=== PATIENT | female | born 1960 | race Caucasian/White ===

== ENCOUNTER → 2016-08-16 | Outpatient (CLI) | payer BC ==
--- NOTE | 2016-08-16 10:00 | REPMRS ---
Patient History The patient states she had a clinical breast exam in Patient is postmenopausal. Family history of colorectal cancer in father at age 50 or over and breast cancer in 2 paternal aunts at age 50 or over. Digital Woman Screen Mammo: August 16, 2016 - Exam #: [id number] Bilateral CC and MLO view(s) were taken. Technologist: Tracey Lehman, Technologist Prior study comparison: August 30, 2015, digital woman screen mammo performed at [facility]. August 07, 2014, digital woman screen mammo performed at [facility]. September 03, 2012, digital woman screen mammo performed at [facility]. FINDINGS: There are scattered fibroglandular densities. There has been no change in the appearance of the mammogram from the prior studies. There is a mild amount of scattered fibroglandular density which is fairly symmetric. There is no interval development of dominant mass, architectural distortion, or clustered microcalcification suggestive of malignancy. ASSESSMENT: BI-RADS/ACR category 1 mammogram. Negative. Recommendation Routine screening mammogram in 1 year (for women over age 40). This mammogram was interpreted with the aid of an FDA-approved computer-aided dectection system. Electronically Signed By: Luis A Hernandez MD 08/16/16 1000
== END ==
LOC: M WHC 08:02
PROVIDERS: ATTEND Nurse Practitioner Family
DX: Z12.31 Encounter for screening mammogram for malignant neoplasm of breast (principal)

== ENCOUNTER → 2017-07-23 | Outpatient (CLI) | payer BC | LOC: M WUC 12:07 | DX: M25.572 Pain in left ankle and joints of left foot (principal) | CPT/HCPCS: 73610 ==

== ENCOUNTER → 2017-08-29 | Outpatient (REF) | payer BC ==
[2017-08-31 14:17] LABS: HPV HYBRID CAPTURE II Negative (Negative)
== END ==
LOC: M SFHCWAGY 11:39
DX: Z12.4 Encounter for screening for malignant neoplasm of cervix (principal)
CPT/HCPCS: G0123

== ENCOUNTER → 2017-08-29 | Outpatient (CLI) | payer BC | LOC: M WHC 11:05 | DX: Z12.31 Encounter for screening mammogram for malignant neoplasm of breast (principal) | CPT/HCPCS: 77067 ==

== ENCOUNTER → 2018-09-02 | Outpatient (CLI) | payer BC ==
[~2018-09-02] MED LIST: VALA500T5 PO
--- NOTE | 2018-09-02 10:15 | REPMRS ---
Patient History The patient states she had a clinical breast exam in 09/03 Patient is postmenopausal. Family history of breast cancer at age 50 or over in paternal aunt, breast cancer at age 50 or over in paternal aunt, colorectal cancer at age 50 or over in father. Taking estrogen for 2 months. Digital Woman Screen Mammo: September 02, 2018 - Exam #: [id number] Bilateral CC and MLO view(s) were taken. Technologist: Priya Newberry, Technologist Prior study comparison: August 29, 2017, digital woman screen mammo performed at [facility]. August 16, 2016, digital woman screen mammo performed at [facility]. FINDINGS: There are scattered fibroglandular densities. There has been no change in the appearance of the mammogram from the prior studies. There is a mild amount of residual fibroglandular tissue which is fairly symmetric. There is no interval development of dominant mass, architectural distortion, or clustered microcalcification suggestive of malignancy. Scattered lymph nodes are seen in the axilla. There are scattered, small, benign calcifications of doubtful clinical significance. 3-D tomosynthesis shows no additional findings. No significant changes when compared with prior studies. Assessment: BI-RADS/ACR category 2 mammogram. Benign Findings. Recommendation Routine screening mammogram in 1 year (for women over age 40). This mammogram was interpreted with the aid of an FDA-approved computer-aided dectection system. A. Negative x-ray reports should not delay biopsy if a dominant or clinically suspicious mass is present. B. Four to eight percent of cancers are not identified by mammography. C. Adenosis and dense breast may obscure an underlying neoplasm. Electronically Signed By: Duncan Romo MD 09/02/18 1700
== END ==
LOC: M WHC 09:28
PROVIDERS: ATTEND Nurse Practitioner Family
DX: Z12.31 Encounter for screening mammogram for malignant neoplasm of breast (principal); R92.8 Other abnormal and inconclusive findings on diagnostic imaging of breast; Z79.890 Hormone replacement therapy; Z80.3 Family history of malignant neoplasm of breast

== ENCOUNTER → 2018-12-23 | Outpatient (REF) | payer BC ==
[2018-12-25 13:45] LABS: HEPATITIS A ANTIBODY IGM NEGATIVE (NEGATIVE); HEPATITIS B CORE ANTIBODY IGM NEGATIVE (NEGATIVE); HEPATITIS B SURFACE ANTIGEN NEGATIVE (NEGATIVE); HEPATITIS C VIRUS ABY INDEX < 0.0 INDEX (<0.8)
== END ==
LOC: M LAB REF 11:39
PROVIDERS: ATTEND Nurse Practitioner Adult Health
DX: R74.8 Abnormal levels of other serum enzymes (principal)

== ENCOUNTER → 2019-09-12 | Outpatient (REF) | payer BC | LOC: M SFHCWAGY 14:53 | PROVIDERS: ATTEND Nurse Practitioner Family | DX: Z12.4 Encounter for screening for malignant neoplasm of cervix (principal) | CPT/HCPCS: 87624; G0123 ==

== ENCOUNTER → 2019-09-12 | Outpatient (CLI) | payer BC ==
--- NOTE | 2019-09-12 12:45 | REP ---
BILATERAL SCREENING DIGITAL MAMMOGRAM WITH 3D TOMOSYNTHESIS: There are no palpable abnormalities or other breast complaints. The patient does not indicate if she had a clinical breast examination in the past year. The Tyrer-[facility]uz[facility] Lifetime Breast Cancer Risk Score is: 10.4% . Comparison is 08/07/2014. The There are scattered areas of fibroglandular density. There is no dominant mass, micro calcific cluster or architectural distortion that would indicate malignancy. There are no additional findings on 3D tomosynthesiss. There is no change from the prior study. Impression: BIRADS/ACR category 1 mammogram. Negative. Recommendation: Routine annual screening mammography. This mammogram was interpreted with the aid of a FDA approved computer-aided detection system. A. Negative mammogram reports should not delay biopsy if a dominant or clinically suspicious mass is present. B. Not all breast cancers are identified by mammography or tomosynthesis. C. Adenosis and dense breasts may obscure an underlying neoplasm. Patient letter M1. Electronically Signed by Ayan Fitzpatrick MD 09/12/2019 12:36 P
== END ==
LOC: M WHC 11:07
PROVIDERS: ATTEND Nurse Practitioner Family
DX: Z12.31 Encounter for screening mammogram for malignant neoplasm of breast (principal)

== ENCOUNTER → 2019-09-17 | Outpatient (CLI) | payer BC ==
--- NOTE | 2019-09-17 11:32 | REP ---
CERVICAL SPINE SERIES: Full cervical spine series performed with eight total views obtained. There is very mild anterior listhesis of C4 on C5 due to posterior facet arthropathy, slightly increases with flexion. No compression fracture is seen. There is diffuse narrowing, sclerosis, and spurring at the posterior facet joints with prominent spurs on the left at the C4-5 facets. Mild vertebral body spurring is noted diffusely. There is mild disc space narrowing and subchondral sclerosis at C5-6 and C6-7. There is no radiographic evidence of significant neural foraminal narrowing bilaterally. IMPRESSION: Degenerative changes as above. No acute fracture is visualized, but if there is continued clinical concern for a fracture then a CT would be recommended. Electronically Signed by Ayan Oseugera MD 09/17/2019 03:57 P
--- NOTE | 2019-09-17 11:33 | REP ---
THORACIC SPINE, AP AND LATERAL: Three AP and lateral views of the thoracic spine are performed. No compression fracture is seen. There is normal alignment and thoracic kyphosis. Very small spurs are seen diffusely with mild disc space narrowing and subchondral sclerosis at virtually all levels. Posterior elements are intact. There is mild curvature toward the right. IMPRESSION: Mild degenerative changes and curvature toward the right. No evidence of fracture. Electronically Signed by Ayan Oseguera MD 09/17/2019 03:57 P
== END ==
LOC: M WUC 10:10
PROVIDERS: ATTEND Physician Assistant
DX: S13.4XXA Sprain of ligaments of cervical spine, initial encounter (principal); S23.3XXA Sprain of ligaments of thoracic spine, initial encounter; X58.XXXA Exposure to other specified factors, initial encounter; Y92.89 Other specified places as the place of occurrence of the external cause

== ENCOUNTER 2019-10-13 11:07 | Outpatient (RCR) | payer BC | END 2019-10-14 | LOC: M PT 11:07 | PROVIDERS: ATTEND Physician Assistant Surgical | DX: M54.2 Cervicalgia (principal) ==

== ENCOUNTER 2019-11-03 11:15 | Outpatient (RCR) | payer BC | END 2019-11-13 | LOC: M PT 11:15 | PROVIDERS: ATTEND Physician Assistant Surgical | DX: Z51.89 Encounter for other specified aftercare (principal); M54.2 Cervicalgia ==

== ENCOUNTER → 2020-09-22 | Outpatient (CLI) | payer BC ==
--- NOTE | 2020-09-22 11:49 | REP ---
INDICATION: N63.12 YRN DIAG MAMMO/RIGHT BREAST LUMP. Palpable lump 12 o'clock position right breast on clinician breast exam. COMPARISON: Mammography is reviewed from September 12, 2019, August 29, 2017, and September 02, 2018. TECHNIQUE: Bilateral CC and MLO) view(s) were taken. Routine views were augmented by magnified focal spot-compression CC mL and MLO views of the right breast in the area the palpable lump. 3D tomography was carried out. Targeted right breast sonography is performed. FINDINGS: There are scattered fibroglandular elements bilaterally. There is an area of architectural distortion on the MLO view at 12 o'clock in the right breast immediately adjacent to the skin marker denoting the site of the palpable lump. On the craniocaudad projection images there is a 1 cm nodular density associated with this architectural distortion showing some spiculation. The right breast is otherwise unremarkable. Normal appearing bilateral axillary lymph nodes are seen. The left breast shows no suspicious abnormality. The Volpara volumetric breast density pattern is B. Targeted right breast sonography: At the site of the palpable lump at 12 o'clock in the right breast, 4 cm from the nipple, sonography demonstrates a 0.7 x 0.6 x 0.6 cm irregularly marginated hypoechoic mass with spiculated appearance. It is taller than wide on some images and is considered suspicious.. IMPRESSION: BI-RADS category 4 right breast mammogram and sonographic findings. Suspicious abnormality. Biopsy should be considered. The left breast is unremarkable. This patient's [facility] lifetime breast cancer risk assessment score is 10.1%. This mammogram was interpreted with the aid of an FDA-approved computer-aided detection system. The patient states she had a clinical breast exam in September of 2020. The patient letter being requested is M4. RECOMMENDATION: Ultrasound-guided needle biopsy of the right breast with marker clip placement and post clip placement mammography of the right breast is recommended.. <Electronically signed by Luis A Hernandez > 09/22/20 4242
== END ==
LOC: M WHC 09:38
PROVIDERS: ATTEND Nurse Practitioner Family
DX: N63.12 Unspecified lump in the right breast, upper inner quadrant (principal)
CPT/HCPCS: 76642; 77066; G0279

== ENCOUNTER → 2020-10-06 | Outpatient (CLI) | payer BC ==
[~2020-10-06] MED LIST changes: +ACET325C5 PO; +ESTR62CR PV; +VITMTA PO
[2020-10-06 09:03] VITALS: BP 120/74
--- NOTE | 2020-10-06 09:45 | REP ---
INDICATION: N63.0 RT BREAST PALPABLE MASS,POST US GUDIED BIOPSY. COMPARISON: Comparison mammography September 22, 2020 and September 12, 2019. TECHNIQUE: Craniocaudal and mediolateral views of the right breast are obtained post ultrasound-guided needle biopsy with marker clip placement. This mammogram was interpreted with the aid of an FDA-approved computer-aided detection system. FINDINGS: Scattered fibroglandular elements are seen. The needle biopsy marker clip is seen adjacent to the spiculated density in the right breast superiorly just medial to the plane of the nipple. . : IMPRESSION: Marker clip in good position. RECOMMENDATION: None. <Electronically signed by Luis A Hernandez > 10/06/20 0905
--- NOTE | 2020-10-06 09:50 | REP ---
INDICATION: N63.0 RT BREAST PALPABLE MASS,US GUIDED BIOPSY. COMPARISON: Comparison sonography September 22, 2020.. TECHNIQUE: Sonographic guidance. FINDINGS: Ultrasound guidance is provided to Dr. Miranda performed ultrasound-guided needle biopsy procedure right breast with marker clip placement. IMPRESSION: Procedural imaging. <Electronically signed by Luis A Hernandez > 10/06/20 0963
--- NOTE | 2020-10-09 11:53 | ROOPDOC ---
[facility] Report Of Operation Report of Operation DATE OF PROCEDURE: 10/06/20 DIAGNOSIS: right breast suspicious lesion PROCEDURE: Ultrasound guided biopsy of right breast suspicious lesion with clip placement SURGEON: Harriet Lord BLOOD LOSS: minimal COMPLICATIONS: none Lidocaine 1% LOT [id number] Expiration 10/2023 Sodium Bicarbonate 8.4% LOT [id number] Expiration 08/2021 Hydromark clip LOT [id number] Expiration 05/2023 SHAPE : 3 Bx device: BARD [id number] x10 cm LOT [id number] Expiration 07/2021 Informed consent was obtained. The most common risk and possible complications including bleeding, hematoma, bruising, infection, injury to surrounding structures were explained to the patient and the patient expressed understanding. Patient was placed on the bed in the supine position. Appropriate time out was done stating patients name, date of , and the procedure to be performed. The right breast was prepped and draped in the usual fashion. The ultrasound was used to confirm the location of the lesion in the right breast at 12:00 4centimeters from the nipple. Plain Lidocaine 1% and 8.4% sodium bicarbonate 10:1 mix was used to anesthetize the skin, the biopsy site and tissues along the anticipated biopsy tract. Small skin incision was made with blade number 11. BARD Marquee 14G cannula with introducer ([id number]) was inserted through the incision and advanced under the ultrasound guidance to position immediately adjacent to the lesion. Next, the introducer was removed and BARD Marquee 14G biopsy device was places in the cannula. Pre-biopsy imaging, and post-biopsy imaging were captured. Five good core biopsies were taken at various levels of the lesion. Specimen was placed in formaldehyde, labeled with appropriate biopsy site and patients name, and sent to pathology for evaluation. Next, the biopsy device was withdrawn and a clip introducer was inserted into the biopsy site via the cannula. The SHAPE 3 Hydromark clip was deployed under sonographic guidance. Post-clip placement image was captured. Manual pressure over the biopsy cavity and tract was held after the clip introducer was withdrawn. No bleeding was noted upon removal of the pressure. Post-biopsy mammogram of the right breast was obtained and showed clip in expected position. Postprocedural dressing was placed. Patient tolerated procedure well. Discharge instructions were discussed with the patient and the patient expressed understanding. HARRIET LORD DO Oct 09, 2020 11:53
== END ==
LOC: M WHCPRO 06:13
PROVIDERS: ATTEND Surgery
DX: D05.12 Intraductal carcinoma in situ of left breast (principal)

== ENCOUNTER → 2020-10-14 | Outpatient (CLI) | payer BC ==
[2020-10-14 09:37] LABS: BLOOD UREA NITROGEN 11 MG/DL (7-18); CALCIUM LEVEL 8.9 MG/DL (8.5-10.1); CARBON DIOXIDE LEVEL 29 MEQ/L (21-32); CHLORIDE LEVEL 104 MEQ/L (98-107); CREATININE FOR GFR 0.61 MG/DL (0.55-1.30); GLOMERULAR FILTRATION RATE > 60.0 (>51); GLUCOSE, FASTING 82 MG/DL (70-100); POTASSIUM SERUM 4.1 MEQ/L (3.5-5.1); SODIUM LEVEL 138 MEQ/L (136-145)
== END ==
LOC: M LAB 08:15
PROVIDERS: ATTEND Surgery
DX: C50.911 Malignant neoplasm of unspecified site of right female breast (principal)

== ENCOUNTER → 2020-10-22 | Outpatient (CLI) | payer BC ==
[~2020-10-22] MED LIST changes: +PROHANCE 279.3MG/ML 15ML VIAL As Ordered ONE
--- NOTE | 2020-10-22 18:52 | REP ---
INDICATION: BREAST CA RIGHT. COMPARISON: Mammogram and ultrasound 09/22/2020. TECHNIQUE: Three Kelsie MRI imaging was performed with a dedicated breast coil. Axial, coronal, and sagittal T1 and T2 weighted scans were obtained with and without fat saturation in the usual fashion. The study includes dynamically acquired post gadolinium-enhanced imaging with image subtraction. Maximum intensity projection and multi planar reformation imaging is included as well. This study is interpreted with the aid of [employer] an FDA approved computer aided detection (CAD) software program, on a dedicated breast MRI workstation. The gadolinium enhancement dose is 12 mL of intravenous ProHance. FINDINGS: There is mild bilateral parenchymal tissue. There is no axillary adenopathy. No significant cystic change is seen in either breast. There is very mild background parenchymal enhancement bilaterally. At the 12 o'clock position, at the site of the recent biopsy positive for cancer in the upper right breast, a biopsy clip is noted. There is a spiculated mass demonstrating plateau and washout enhancement at that location, measuring approximately 8 x 11 x 7 mm. This is located approximately 4 cm from the nipple. There is no other suspicious enhancing mass or morphologic abnormality bilaterally. IMPRESSION: BI-RADS category 6 known right breast cancer. At the 12 o'clock position of the right breast, at the site of the recent biopsy positive for cancer, is a spiculated mass which measures 8 x 11 x 7 mm. This demonstrates suspicious plateau and washout enhancement. There is no other evidence of suspicious enhancing mass or morphologic abnormality. There is no evidence of pathologically enlarged axillary lymph nodes bilaterally. <Electronically signed by Ayan Oseguera > 10/22/20 0533
== END ==
LOC: M RAD 15:29
PROVIDERS: ATTEND Surgery
DX: C50.412 Malignant neoplasm of upper-outer quadrant of left female breast (principal)
CPT/HCPCS: A9576; C8908

== ENCOUNTER → 2020-10-28 | Outpatient (CLI) | payer BC ==
[~2020-10-28] MED LIST changes: -PROHANCE 279.3MG/ML 15ML VIAL As Ordered ONE
== END ==
LOC: M LABSMTC 12:47
PROVIDERS: ATTEND Anesthesiology
DX: Z20.828 Contact with and (suspected) exposure to other viral communicable diseases (principal); Z11.59 Encounter for screening for other viral diseases

== ENCOUNTER → 2020-10-28 | Outpatient (CLI) | payer BC ==
--- NOTE | 2020-10-29 06:46 | REP ---
INDICATION: ENCOUNTER FOR OTHER PREPROCEDURAL EXAMINATION COMPARISON: None. TECHNIQUE: PA and lateral. FINDINGS: The mediastinum and cardiac silhouette are normal. The lung kamara are clear and without acute consolidation, effusion, or pneumothorax. The skeletal structures are intact and normal. IMPRESSION: No acute cardiopulmonary process. <Electronically signed by Dalton Trujillo > 10/29/20 0612
== END ==
LOC: M RAD 15:14
PROVIDERS: ATTEND Surgery
DX: Z01.818 Encounter for other preprocedural examination (principal)

== ENCOUNTER 2020-11-02 06:42 | Day surgery (SDC) | payer BC ==
[~2020-11-02] VITALS: Ht 157.5 cm; Wt 62.1 kg
[~2020-11-02 06:42] MED LIST changes: +LIDOCAINE 1% MDV 20ML VIAL SQ PRN
[2020-11-02] MEDS ORDERED: HEPARIN SOD (PORCINE) 5000UNITS/ML 1ML VIAL/SYRINGE SQ ONE (07:00)
[2020-11-02] MEDS ORDERED: CLINDAMYCIN 900 MG in IV 1 EA IV ONE (07:00)
[2020-11-02] MEDS ORDERED: LR 1,000 ML IV ONE (07:00)
[2020-11-02] MEDS ORDERED: propofoL 200 MG/20 ML VIAL As Ordered ONE (08:19)
[2020-11-02] MEDS ORDERED: fentaNYL 100 MCG/2 ML INJECTION (J3010) As Ordered ONE (08:19)
[2020-11-02] MEDS ORDERED: MIDAZOLAM INJ 2MG/2ML VIAL (J2250 PER 1MG) As Ordered ONE (08:19)
[2020-11-02] MEDS ORDERED: LIDOCAINE 2% 100MG/5ML SDV (FOR ANES.) As Ordered ONE (08:19)
[2020-11-02] MEDS ORDERED: ONDANSETRON 4MG/2ML VIAL As Ordered ONE (08:19)
[2020-11-02] MEDS ORDERED: ACETAMINOPHEN 1000MG 100ML IV BTL (OFIRMEV) (J0131 PER 10MG) As Ordered ONE (08:20)
[2020-11-02] MEDS ORDERED: dexameTHASONE 4 MG/ML 1ML VIAL (J1100 PER 1MG) As Ordered ONE (08:20)
[2020-11-02] MEDS ORDERED: BUPIVACAINE HCL 0.25% 30ML VIAL As Ordered ONE (09:23)
[2020-11-02] MEDS ORDERED: LIDOCAINE 1% SDV 30ML VIAL As Ordered ONE (09:23)
[2020-11-02] MEDS ORDERED: METHYLENE BLUE 0.5% (5MG/ML) 10 ML AMP (PROVAYBLUE) As Ordered ONE (09:23)
[2020-11-02] MEDS ORDERED: PHENYLephrine 500MCG 5ML (100MCG/ML) SYRINGE As Ordered ONE (11:17)
--- NOTE | 2020-11-02 11:54 | REP ---
INDICATION: RIGHT BREAST CANCER. COMPARISON: Comparison ultrasound imaging October 06, 2020.. TECHNIQUE: Ultrasound guidance. FINDINGS: Sonographic guidance is provided to Dr. Miranda who performed a ultrasound-guided wire localization procedure. IMPRESSION: Procedural imaging. Ultrasound guidance. <Electronically signed by Luis A Hernandez > 11/02/20 1152
[2020-11-02] MEDS ORDERED: ULTR50TA8 PO (12:59)
[2020-11-02] MEDS ORDERED: fentaNYL 100 MCG/2 ML INJECTION (J3010) IV PRN (13:15)
[2020-11-02] MEDS ORDERED: LR 1,000 ML IV SCH (13:15)
[2020-11-02] MEDS ORDERED: oxyCODONE 5MG TAB PO PRN (13:15)
[2020-11-02] MEDS ORDERED: ONDANSETRON 4MG/2ML VIAL IV PRN (13:15)
[2020-11-02 14:25] VITALS: BP 117/73
--- NOTE | 2020-11-02 15:54 | REP ---
INDICATION: RIGHT BREAST CANCER. COMPARISON: Comparison mammography October 06, 2020.. TECHNIQUE: Four views including photograph spirits FINDINGS: Two orthogonal specimen radiographs demonstrate the needle biopsy marker clip, the Kopan's localizer wire, and the spiculated lesion density centrally located within the breast specimen. IMPRESSION: Specimen radiography shows the marker clip, the target spiculated lesion, and the Kopan's localizer wire. <Electronically signed by Luis A Hernandez > 11/02/20 8103
--- NOTE | 2020-11-02 16:41 | REP ---
INDICATION: NEEDLE BIOPSY. COMPARISON: None. TECHNIQUE: The procedure was performed under the direct supervision of Dr. Hernandez. The images were reviewed with Dr. Hernandez. The risks and benefits of the procedure were explained to the patient and informed consent was obtained. Using topical anesthetic and sterile technique 0.96 mCi of technetium 99 filtered sulfur colloid was injected subdermally in 8 fractionated periareolar injections. FINDINGS: There is nadya uptake in the axillary region on the right. IMPRESSION: Right breast lymphoscintigraphy. There is nadya uptake in the axillary region on the right. <Electronically signed by Obed Sylvester > 11/02/20 1622 <Electronically signed by Luis A Hernandez > 11/02/20 5249
--- NOTE | 2020-11-09 11:49 | ROOPDOC ---
[facility] Report Of Operation Report of Operation DATE OF PROCEDURE: 11/02/20 PREPROCEDURE DIAGNOSES: Right breast cancer POSTPROCEDURE DIAGNOSES: Right breast cancer PROCEDURE: Right breast lumpectomy with intraoperative wire placement and right sentinel lymph node biopsy SURGEON: Harriet Lord ESTIMATED BLOOD LOSS: minimal COMPLICATIONS: none REMARKS: clip and wire were identified in the specimen, 2 sentinel lymph nodes identified, 5 margins were taken DESCRIPTION OF PROCEDURE: INDICATIONS: Ms. Yamileth Meza is a 60-year-old woman who was found to have a suspicious right breast palpable mass. Mammographic and sonographic correlate were found. US guided biopsy of the right breast lesion came back as IDC, ER +, NE+, HER-2 negative. Surgical options were discussed with patient. She opted for breast conservative surgery with sentinel lymph node biopsy on the right. She was medically cleared for surgery by her primary care doctor. Risks and possible complications of surgical procedure including bleeding, infection and injury to surrounding structures were explained to the patient and she wished to proceed. Consent was signed. My initials were placed on the operative site. Subcutaneous injection of 5000 units of heparin was done. The injection of radioactive tracer was done in radiology department preoperatively. Lymphoscintigraphy imaging was reviewed in preop. DETAILS: Patient was taken to the operating room and placed on the operating room table. A sign in was called stating patients name, date of and the procedure to be done. Preoperative antibiotics were infused. Smooth induction of general anesthesia was done. Patients hands were extended on arm rests. Care was taken not to over extend the arms. Pillow was placed under the knees and a foam was placed under the heels. Sequential compression devices were placed and assured to function correctly. Procedure was started with right breast intraop wire localization. Appropriate time out was done and patients name, date of , and the procedure to be done were confirmed. Right breast was cleaned by me. Intraoperative ultrasound was used to confirm location of the Hydromark clip. Location of the clip was marked on the skin as well. 21 G Kopans Breast Lesion Localization Needle was used to place 25 cm wire through the lesion. The end of the wire was passed a centimeter deep. The images were captured confirming adequate placement of the localizing wire. Wool Puller assisted with the wire placement. Next, patients right breast and axilla were prepped and draped in the usual fashion. Care was taken not to displace the wire. Appropriate time out was done again prior second part of the procedure. Patients name, date of , and the procedure to be done were confirmed. Procedure was started with sentinel lymph node biopsy. Neoprobe was used to locate area of maximum intensity of the signal. Local anesthetic using 1% lidocaine and 0.25 % Marcaine 50/50 mix was injected. An incision was made with scalpel number 15 at the inferior aspect of axillary hair line in the right axilla where the maximum signal was identified. The sharp and blunt dissection was continued through the subcutaneous adipose tissue. Clavipectoral fascia was opened. Neoprobe was used to guide the dissection. First sentinel lymph node was identified in deep axilla and excised. The ex-vivo 10 second count was 90022. Second sentinel lymph node was identified and excised as well. The ex- vivo 10 second count was 65805. The specimens were labeled with patients name and sent to pathology. No additional lymph nodes with high radioactive signal were identified. The 10 second count of the background was 23. Adequate hemostasis was assured. Additional local anesthetic was injected into surrou nding tissues. Wound was irrigated. Clavipectoral fascia was closed with 3-0 Vicryl interrupted suture. Dermal layer was closed at the end of the case with 3-0 Monocryl and skin was closed with 4-0 Monocryl. Surgical glue was applied to the incision at the end of the procedure. Next, our attention was turned toward the right breast. Local anesthetic using 1% lidocaine and 0.25 % Marcaine 50/50 mix was injected at the site of planned periareolar incision. The incision was made with the scalpel. Subcutaneous skin flaps were raised and the guide wire was carefully pulled into the wound. Dissection was carries along the wire until the previously marked on the skin area of target lesion location was encountered. At this point, wider excision of the tissue surrounding the wire was done. The Hydromark clip was identified in the tissue with intraoperative hockey stick ultrasound probe. The end of the wire was identified with palpation. The lumpectomy specimen was carefully removed from the breast keeping its proper orientation and moved to the back table where margins were marked with the surgical inking kit following the standard colors recommendations. Specimen was then placed on the grid and placed in [facility] Specimen Imaging System. The image revealed the wire and the Hydromark in the specimen. The specimen was labeled with patients name and right lumpectomy and sent to pathology. Next, five additional margins were taken: deep, inferior, superior, medial, and lateral. Additional anterior margin was not removed because it was at the subcutaneous tissue. All new margins, defined as margin farthest away from lumpectomy cavity, were marked with black ink. Each margin was sent as a separate specimen with appropriate labeling. Wound was thoroughly irrigated. Ad equate hemostasis was assured. Additional local anesthetic was injected into surrounding tissues. Clips were placed to kiko the cavity. space was approximated with 2-0 Vicryl. The dermis was closed with 3-0 Vicryl and skin was closed with 4-0 Monocryl. Surgical glue was placed over the incision. Patient emerged from the anesthesia without any problems. Fluffs were placed ove r the operative site and patients chest was wrapped snuggly in the KING wrap. Sponge and instrument counts were done and were correct. Patient tolerated procedure well and was taken to recovery unit in stable condition. HARRIET LORD DO Nov 09, 2020 11:49
== END 2020-11-02 14:30 | disposition home or self-care (01) ==
LOC: M SDC 06:42
PROVIDERS: ATTEND Surgery
DX: C50.911 Malignant neoplasm of unspecified site of right female breast (principal); Z17.0 Estrogen receptor positive status [ER+]; A60.00 Herpesviral infection of urogenital system, unspecified; Z79.899 Other long term (current) drug therapy; Z88.0 Allergy status to penicillin; Z91.040 Latex allergy status; Z91.018 Allergy to other foods
CPT/HCPCS: 19125; 36415; 38525; 76942; 78195; 81025; 86850; 86900; 86901; 88305; 88307; A9541; J0131; J1100; J1644; J2250; J2370; J2405; J3010; Q9968

== ENCOUNTER 2020-11-07 12:39 | Emergency (ER) | payer BC ==
[~2020-11-07] VITALS: Ht 160 cm; Wt 61.4 kg
[~2020-11-07 12:39] MED LIST changes: -LIDOCAINE 1% MDV 20ML VIAL SQ PRN; +ULTR50TA8 PO
--- NOTE | 2020-11-07 13:08 | REP ---
INDICATION: Syncope/near-syncope COMPARISON: 10/28/2020 TECHNIQUE: Portable AP view of the chest FINDINGS: The mediastinum and cardiac silhouette are stable and within normal limits for portable technique. The lung kamara are clear without acute consolidation, effusion, or pneumothorax. Skeletal structures are intact. IMPRESSION: No acute cardiopulmonary process appreciated. <Electronically signed by Dalton Trujillo > 11/07/20 4678
[2020-11-07 13:09] LABS: BASO % 0.5 % (0.0-1.0); EOS # 0.1 10^3/uL (0.0-0.5); EOS % 1.4 % (0.0-3.0); HEMATOCRIT 42.5 % (36.0-47.0); LYMPH # 1.8 10^3/uL (1.5-5.0); MEAN CORPUSCULAR HGB CONC 32.9 g/dl (32.0-36.5); MONO # 0.5 10^3/uL (0.0-0.8); MONO % 6.5 % (2.0-8.0); NEUTROPHILS # 4.9 10^3/uL (1.5-8.5); NEUTROPHILS % 67.3 % (36.0-66.0); PLATELET COUNT, AUTOMATED 282 10^3/uL (150-450); RED BLOOD COUNT 4.52 10^6/uL (4.00-5.40); WHITE BLOOD COUNT 7.3 10^3/uL (4.0-10.0)
[2020-11-07] MEDS ORDERED: NS 1,000 ML IV ONE (13:10)
[2020-11-07 13:36] LABS: BLOOD UREA NITROGEN 13 MG/DL (7-18); CALCIUM LEVEL 8.9 MG/DL (8.5-10.1); CARBON DIOXIDE LEVEL 28 MEQ/L (21-32); CHLORIDE LEVEL 104 MEQ/L (98-107); CK-MB VALUE MASS < 1.0 NG/ML (<3.6); CPK CREATINE PHOSPHOKINASE 58 U/L (26-192); CREATININE FOR GFR 0.74 MG/DL (0.55-1.30); FREE T4 0.81 NG/DL (0.76-1.46); GLOMERULAR FILTRATION RATE > 60.0 (>51); GLUCOSE, FASTING 142 MG/DL (70-100); MAGNESIUM LEVEL 2.2 MG/DL (1.8-2.4); MB/CK RELATIVE INDEX 1.72 (< OR =4); SODIUM LEVEL 139 MEQ/L (136-145); TROPONIN I < 0.02 NG/ML (< 0.10)
[2020-11-07 14:16] VITALS: BP 129/72
--- NOTE | 2020-11-07 17:09 | CR.PDOC ---
Breast Surgery Consultation Date of Consultation Date: Nov 07, 2020 History and Physical CONSULT REPORT FOR: recent right breast surgery HISTORY OF PRESENT ILLNESS: Ms. Meza is a 60 year-old female seen previously in the clinic for evaluation of right palpable lump. The patient's lump was originally noted on clinical breast exam by her CAN CUTTER. She had a bilateral diagnostic mammogram and Right ultrasound done on . Her mammogram showed an architectural distortion at 12:00 in MLO view in the right breast immediately adjacent to the skin marker denoting the site of the palpable lump. On CC view there is a 1 cm nodular density associate with this distortion showing some spiculation. Right breast ultrasound at 12:00, 4 cm from the nipple demonstrated a 0.7 x 0.6 x 0.6 cm irregularly marginated hypoechoic mass with spiculated appearance. It is taller than wider on some images. BIRADS 4 was assigned. Patient underwent a Right ultrasound guided biopsy on 10/06/2020 with me. Her pathology showed IDC, grade 2. ER/DE positive, HER2 negative. Patient had an MRI done on 10/22/2020 which showed at the site of the biopsy positive for cancer, a spiculated mass measuring 8x11x7 mm, 4 cm from the nipple. This was discussed with the patient and breast conservation surgery was elected. Patient underwent a Right breast lumpectomy with me on 11/02/2020. 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 -4/TR Tumor size: 0.9cm in greatest dimension (microscopic measurement) No lymphovasuclar ivasion identified. Margins are uninvolved by invasive carcinoma Previous biopsy site noted. pT1b, pN0 See synoptic report below. B-Lymph node, right axillary sentinel #1: One lymph node negative for metastatic carcinoma (0/1) C-Lymph node, right axillary sentinel #2: One lymph node negative for metastatic carcinoma (0/1) D-Submitted as "inferior margin, ink rahman true new margin" Negative margin. Benign breast tissue. E-Submitted as "medial margin, ink marls true new margin" Negative margin. Benign breast tissue. F-Submitted as "superior margin, ink rahman true new margin" Negative margin. Benign breast tissue. G-Submitted as "lateral margin, ink rahman true new margin" Negative margin. Benign breast tissue. H-Submitted as "posterior margin, ink margins true new margin" Negative margin. Benign breast tissue. SYNOPTIC REPORT BREAST, RIGHT, LUMPECTOMY-INVASIVE DUCTAL CARCINOMA. SIZE: 0.9cm in greasiest dimension (microscopic measurement) GRADE (ALFONSO-ALBARADO) -2-3 LYMPH-VASCULAR INVASION- Not identified MARGINS-uninvolved by invasive carcinoma RECEPTORS/TUMOR MARKERS (IMMUNOHISTOCHEMISTRY): See previous biopsy ([id number]) Results below: Estrogen Receptors: Positive (strong intensity in 91-100% of tumor cells) Progesterone Receptors: Positive (moderate intensity in 81-90% of tumor cells) HER 2 MARIZA: Negative (1+) OTHER FINDINGS- No other significant findings pTN: pT1b, pN0 11/03/20 - [id number] Patient's daughter called me today to notify me that Ms. Meza passed out after shower and was unresponsive for a moment. Patient's daughter called 911 but when patient regained some consciousness, she requested that 911 call be cancelled which her daughter did. When I learned about the situation, I recommended patient to call 911 again and to go to ED for evaluation. PAST MEDICAL HISTORY: 1. see [employer] and ecw chart PAST SURGICAL HISTORY: INCLUDES: 1.see [employer] and ecw chart PREVIOUS ANESTHESIA REACTIONS: see [employer] and ecw chart ALLERGIES: Please see below. FAMILY HISTORY: see [employer] and ecw chart HOME MEDICATIONS: Please see below. REVIEW OF SYSTEMS: GENERAL: no fevers, patient passed out today in the shower PULMONARY: no cough BREAST: no hematoma at the biopsy site, blisters from the steri strips PHYSICAL EXAMINATION: VITALS SIGNS: Please see below. GENERAL: alert and oriented x3 RESP: breathing comfortably on room air CARDIO: not tachycardic at this time BREAST: right breast is soft, mild ecchymosis present, no palpable hematoma, incision site healing well. No erythema or drainage from the incision site. Right superior periareolar incision is healing very well. glue is in place, no drainage or erythema. No contour deformity. The right axillary incision is also healing very well. Glue is in place. There is some tenderness at the axilla. EXTREMITIES: no gross deformity LABORATORY DATA: Please see below. IMAGING STUDIES: CXR wnl IMPRESSION: 60 y o F with recently dx R breast Ca, s/p R lumpectomy and R SLNBx on 11/02/20, who experienced syncopal event and was sent to ED for evaluation RIGHT BREAST CANCER IDC GRADE 2 ER+ DE+ HER2(-) cT1b (0.9cm) cN0 cM0 ANATOMICAL STAGE 1 S/p right lumpectomy with SLNBx with me 11/02/2020 MARGINS: negative No LVI ONCOTYPE DX: will order GENETIC TESTING: pending PLANS: - syncopal evaluation per ED staff, CXR, cardiac enzymes and labs are wnl - patient is healing well from recent surgery, no concerns for infections or hematoma, no surgical intervention - Surgical pathology discussed today with the patient, no additional excision is needed from oncologic point - MedOnc/ RadOnc followup recommended, will reach out to the services to set up appt - will order Oncotype DX - massage the surgical sites at 2 weeks postop - ok to return to work if healing well at 2 weeks - will cancel tomorrows clinic appt since I am seeing patient today - recommended to patient that she schedule appt with her PCP within 7 week from hospital discharge - above was discussed with the ED staff and with the patient and her daughter Vital Signs Vital Signs Date Time Temp Pulse Resp B/P (MAP) Pulse Ox O2 Delivery O2 Flow Rate FiO2 11/07/20 14:16 77 129/72 (91) 98 Room Air 11/07/20 12:40 98.5 22 Laboratory Data Labs 24H Laboratory Tests 2 11/07/20 12:57: Immature Granulocyte % (Auto) 0.3, Neutrophils (%) (Auto) 67.3H, Lymphocytes (%) (Auto) 24.0, Monocytes (%) (Auto) 6.5, Eosinophils (%) (Auto) 1.4, Basophils (%) (Auto) 0.5, Neutrophils # (Auto) 4.9, Lymphocytes # (Auto) 1.8, Monocytes # (Auto) 0.5, Eosinophils # (Auto) 0.1, Basophils # (Auto) 0.0, Nucleated Red Blood Cells % (auto) 0.0, Anion Gap 7L, Glomerular Filtration Rate > 60.0, Calcium Level 8.9, Magnesium Level 2.2, Total Creatine Kinase 58, Creatine Kinase MB < 1.0, Creatine Kinase MB Relative Index 1.72, Troponin I < 0.02, Thyroid Stimulating Hormone (TSH) 1.900, Free Thyroxine 0.81 11/07/20 13:01: Bedside Glucose (Misc Panel) 136H CBC/BMP Laboratory Tests 11/07/20 12:57 Home Medications Scheduled Valacyclovir HCl (Valacyclovir) 500 Mg Tab, 500 MG PO every other day, (Rep orted) Allergies Coded Allergies: Penicillins (Verified Allergy, Severe, HIVES/DIFFICULTY BREATHING, 09/08/20) TAPE (Verified Allergy, Intermediate, blistering, 11/02/20) kiwi (Verified Allergy, Intermediate, HIVES, 09/08/20) latex (Verified Allergy, Intermediate, BLISTERING HIVES, 10/28/20) HARRIET LORD DO Nov 07, 2020 16:58
--- NOTE | 2020-11-07 22:05 | ECGEPIP ---
[facility] - ED Test Date: 2020-11-07 Pat Name: ALISHA WILLOUGHBY Department: Room: - Gender: Female [employer] Registrar: ANTOINE : [id number] Requested By: Cordell Ledesma Order Number: [id number] Reading MD: Silvina Alvarenga Measurements Intervals Angela Rate: 90 P: 52 ME: 142 QRS: 12 QRSD: 74 T: 2 QT: 366 QTc: 447 Interpretive Statements Normal sinus rhythm NSTTW abnormalities No prior Electronically Signed on 11-07-2020 22:05:31 EDT by Silvina Alvarenga
== END 2020-11-07 14:37 | disposition home or self-care (01) ==
LOC: M ED 12:39
DX: R55 Syncope and collapse (principal); J45.909 Unspecified asthma, uncomplicated; C50.919 Malignant neoplasm of unspecified site of unspecified female breast; Z88.0 Allergy status to penicillin; Z91.040 Latex allergy status; Z91.018 Allergy to other foods

== ENCOUNTER → 2020-11-16 | Outpatient (CLI) | payer BC ==
[~2020-11-16] MED LIST changes: +CALCCHW19 PO; +GLYCCAP PO; +MULTTAB61 PO; +VITA100T59 PO
--- NOTE | 2020-11-16 15:48 | RADONC.CN ---
Radiation Oncology Hx/Consult Radiation Oncology Consult Date of Service: November 16, 2020 Pt Identifier Yamileth Meza is a 60 year old post-menopausal female with a history of right breast cancer pT1bN0(sn)M0 ER/MT+ HER2- Grade 2 she is s/p lumpectomy and SLNB with Dr. Miranda on 11/02/20 margins were widely negative. She is seen today for consideration of adjuvant RT. Diagnosis/Treatment History Oncologic History 09/22/20 Mammogram showing 12 o'clock abnormality right breast. 10/06/20 Biopsy showing IDC grade 2 ER/MT+ HER2- 10/22/20 MRI Negative for regional disease 11/02/20 Lumpectomy and SLNB (Ruth) pT1bN0(sn)M0 margins negative Oncotype pending Breast history: OCP 10 years 1st @ 21 Menses @ 15 Post-menopausal @ 54 No HRT No IVF Interval History Here with her daughters. She reports that she has some ongoing soreness in the right breast. No incisional concerns. No significant swelling or impaired ROM. Works at [employer] (x41 years!). She exercises and has stable appetite and energy levels. Past Medical History: HSV CAP Past Surgical History: As above Family History: Father colon cancer Social History: Never smoker Drinks alcohol 1 day per week (with pizza) Allergies / Meds Allergies: Coded Allergies: Penicillins (Verified Allergy, Severe, HIVES/DIFFICULTY BREATHING, 09/08/20) TAPE (Verified Allergy, Intermediate, blistering, 11/02/20) kiwi (Verified Allergy, Intermediate, HIVES, 09/08/20) latex (Verified Allergy, Intermediate, BLISTERING HIVES, 10/28/20) Home Meds Reported Medications Ascorbic Acid (Vitamin C) 100 Mg Tablet, 1 TAB PO DAILY for 30 Days, #30 TAB 11/16/20 Vit B12/Folic Acid/B6/Aa No.15 (Glycotrol Capsule) 1 Each Capsule, 1 CAP PO DAILY for 30 Days, #30 CAP 11/16/20 Calcium Carb/Vitamin D3/Vit K1 (Calcium + D Soft Chewable Tab) 1 Each Tab.chew, 1 CHW PO 11/16/20 Multivitamin (Multivitamins) 1 Each Tablet, 1 TAB PO, TAB 11/16/20 Valacyclovir HCl (Valacyclovir) 500 Mg Tab, 500 MG PO every other day 04/26/17 Review of Systems General: Reports: Normal Appetite Constitutional: Denies: Chills, Fever, Night Sweats Eyes: Denies: Pain, Vision change HEENT: Denies: Head Aches, Dysphagia, Sore Throat Skin: Denies: Rash, Lesions, Bruising Pulmonary: Denies: Dyspnea, Cough Cardiovascular: Denies: Chest Pain, Palpitations, Edema Gastrointestinal: Denies: Nausea, Vomiting, Abdominal Pain, Diarrhea Genitourinary: Denies: Dysuria, Frequency, Incontinence Hematologic: Denies: Bruising, Petecchia, Enlarged Lymph Nodes Musculoskeletal: Denies: Neck pain, Back pain Neurological: Denies: Weakness, Numbness, Incoordination Psych: Reports: Mood Normal; Denies: Memory Issues, Thoughts of Self Harm Vital Signs Ht 63" Wt 141 lbs BMI 25 T 98.8 P 91 RR 16 BP 113/73 O2 98% Pain 0 Fatigue 0 General Exam: Positive: Alert, Cooperative, No Acute Distress Eye Exam: Positive: PERRLA, EOMI ENT EXAM: Positive: Mucous membr. moist/pink, Pharynx Normal Neck Exam: Negative: Thyromegaly, Lymphadenopathy Chest Exam: Positive: Normal air movement; Negative: Rales, Rhonchi, Wheezing Heart Exam: Positive: Rate Normal, Regular Rhythm Breast Exam: Positive: Symmetric Bilaterally, Skin Changes (Bruising medial right breast. Healing periareolar and axillary incision on the right. No palpable masses or axillary adenopathy BL. ); Negative: Lumps or Masses, Nipple Retraction, Nipple Discharge Abdomen Exam: Positive: Soft; Negative: Tenderness, Mass Extremity Exam: Negative: Edema, Tenderness Skin Exam: Positive: Nl turgor and temperature; Negative: Rash Neuro Exam: Positive: Normal Gait, Normal Speech, Cranial Nerves 3-12 NL Psych Exam: Positive: Mental status NL, Mood NL, Memory Intact Diagnostic and Laboratory Diagnostic Review Radiologic images, relevant labs and pathology reports were personally reviewed and discussed with Ms. Meza. Assessment and Plan Impression Ms. Meza is a 60 year old post-menopausal female with a history of right breast cancer pT1bN0(sn)M0 ER/MT+ HER2- Grade 2 she is s/p lumpectomy and SLNB with Dr. Miranda on 11/02/20 margins were widely negative. She is seen today for consideration of adjuvant RT. Stage Stage IA pT1bN0(sn)M0 ER/MT+ HER2- Grade 2 IDC of the right upper outer breast Performance Status ECOG 0 Plan We had an extensive discussion with Ms. Meza regarding the diagnosis at hand and available therapeutic options. She has a screening detected early stage right breast cancer and is otherwise healthy. Genetic testing was negative. Oncotype is pending. Barring surprising oncotype results, we discussed moving forward with adjuvant RT. I discussed the options of whole breast RT +/- boost versus APBI, which she is appropriate for based on BENJAMIN criteria. She favors APBI, which I think is a good choice. For APBI we discussed 26 Gy in 5 fraction per the FAST FORWARD regimen versus 40 Gy in 15 fractions per the IMPORT LOW regimen. Both have equivalent control, the latter however has longer follow up than the former. The former however is more convenient. Cosmesis appears equivalent as well. She will consider her options prior to deciding on a particular regimen. We discussed the logistics of receiving radiation therapy in detail including the need for a 1-time planning session. This can occur the week of 12/06/20, by then the oncotype should be back. We reviewed the side effects of treatment including fatigue, skin reaction and late fibrosis. As this is a right sided lesion which we will treat with APBI, h eart and lung doses are not a significant concern. After discussing the risks, benefits and alternatives to radiation therapy, Ms. Meza was amenable to pursuing radiotherapy. All questions were answered to the patient's satisfaction. We instructed the patient that if there were any questions,concerns or changes in clinical status in the interim to contact us. Recommendations APBI 26 Gy in 5 fractions versus 40 Gy in 15 fractions (patient to decide prior to sim) Simulation in the next 1-2 weeks Follow up oncotype score Billing Statement Total time of [40] minutes was spent preparing for the visit [2], obtaining HPI [5], examining the patient [4], reviewing diagnostic tests [5], discussing management options [15], coordinating care [1], and writing this note [8]. MILADYS RIDER MD November 16, 2020 15:48
== END ==
LOC: M ONCR 13:18
PROVIDERS: ATTEND General Practice
DX: C50.411 Malignant neoplasm of upper-outer quadrant of right female breast (principal)

== ENCOUNTER 2020-12-03 10:25 | Outpatient (RCR) | payer BC ==
[~2020-12-03 10:25] MED LIST changes: +LETR2.5T2 PO
== END 2020-12-13 ==
LOC: M ONCR 10:25
PROVIDERS: ATTEND General Practice
DX: C50.411 Malignant neoplasm of upper-outer quadrant of right female breast (principal)

== ENCOUNTER → 2020-12-07 | Outpatient (CLI) | payer BC ==
--- NOTE | 2020-12-07 14:51 | DEXAMM ---
INDICATION: BREAST CA,ON AI. COMPARISON: None. TECHNIQUE: Bone density was measured using dual-energy x-ray absorptionmetry (DEXA). FINDINGS: AP SPINE L1-L4 BMD 1.100 g/cm2 Young Adult T-Score -0.8 Age Matched Z-Score 0.3. LT FEMUR, TOTAL BMD 0.835 g/cm2 Young Adult T-Score -1.4 Age Matched Z-Score -0.6. LT NECK BMD 0.885 g/cm2 Young Adult T-Score -1.1 Age Matched Z-Score 0.1. RT FEMUR, TOTAL BMD 0.830 g/cm2 Young Adult T-Score -1.4 Age Matched Z-Score -0.6. RT NECK BMD 0.865 g/cm2 Young Adult T-Score -1.2 Age Matched Z-Score -0.1. IMPRESSION: There is normal bone density of the spine. There is low bone density of the left hip. There is low bone density of the right hip. FOLLOW-UP: Recommendation for the next bone density exam: 2 years. <Electronically signed by Luis A Hernandez > 12/07/20 [id number]
== END ==
LOC: M WHC 11:15
PROVIDERS: ATTEND Internal Medicine Hematology & Oncology
DX: C50.919 Malignant neoplasm of unspecified site of unspecified female breast (principal); Z79.811 Long term (current) use of aromatase inhibitors

== ENCOUNTER 2021-01-11 10:45 | Outpatient (RCR) | payer BC | END 2021-01-12 | LOC: M ONCR 10:45 | PROVIDERS: ATTEND General Practice | DX: C50.411 Malignant neoplasm of upper-outer quadrant of right female breast (principal) ==

== ENCOUNTER → 2021-04-21 | Outpatient (REF) | LOC: M EMP 14:49 | PROVIDERS: ATTEND Family Medicine | DX: Z20.822 Contact with and (suspected) exposure to COVID-19 (principal) ==

== ENCOUNTER → 2021-05-17 | Outpatient (REF) | LOC: M EMP 12:29 | PROVIDERS: ATTEND Family Medicine | DX: Z20.828 Contact with and (suspected) exposure to other viral communicable diseases (principal); Z11.52 Encounter for screening for COVID-19 ==

== ENCOUNTER → 2021-05-23 | Outpatient (REF) | LOC: M EMP 09:02 | PROVIDERS: ATTEND Family Medicine | DX: Z20.822 Contact with and (suspected) exposure to COVID-19 (principal) ==

== ENCOUNTER → 2021-07-06 | Outpatient (CLI) | payer BC ==
--- NOTE | 2021-07-06 10:13 | RADONC ---
Radiation Oncology Hx/FUP Radiation Oncology Hx/FUP Date of Service: Jul 06, 2021 Pt Identifier Yamileth Meza is a 60 year old female seen for a followup visit today at the department of radiation oncology for a history of right breast cancer pT1bN0(sn)M0 ER/MS+ HER2- Grade 2 she is s/p lumpectomy and SLNB with Dr. Miranda on 11/02/20 margins were widely negative. She then completed adjuvant PBI 40 Gy in 15 fractions 12/20/20-01/11/21. She continues on AI. Diagnosis/Treatment History Oncologic History 09/22/20 Mammogram showing 12 o'clock abnormality right breast. 10/06/20 Biopsy showing IDC grade 2 ER/MS+ HER2- 10/22/20 MRI Negative for regional disease 11/02/20 Lumpectomy and SLNB (Ruth) pT1bN0(sn)M0 margins negative 12/20/20-01/11/21 Adjuvant PBI 40 Gy in 15 fractions Survivorship Test Due Next Last result Notes TSH, T4* 6m post-tx, then q1y N/A Carotid US* q10 y post-tx N/A Smoking cessation Assess annually if applicable N/A Screening CT chest q1y if eligible per USPSTF N/A Mammograms Min q1y, if breast conservation September 2021 CBC,CMP, Lipids q1y Per medical oncology WNL 2020 DEXA q2y if on AI Per medical oncology 2022 WNL 2020 Interval History Yamileth has no post radiation concerns, no skin changes, no swelling in the breast or arm. She is having hot flashes and joint pains from the AI. It bothers her, reminds her of menopause. She reports some weight gain and low-energy levels as well. She is resolute to continue the AI however. Current Therapy AI Stage Stage IA pT1bN0(sn)M0 ER/MS+ HER2- Grade 2 IDC of the right upper outer breast Social History: Never smoker Drinks alcohol 1 day per week (with pizza) Allergies / Meds Allergies: Coded Allergies: Penicillins (Verified Allergy, Severe, HIVES/DIFFICULTY BREATHING, 09/08) TAPE (Verified Allergy, Intermediate, blistering, 11/02/20) kiwi (Verified Allergy, Intermediate, HIVES, 09/08/20) latex (Verified Allergy, Intermediate, BLISTERING HIVES, 10/28/20) Home Meds Active Scripts Letrozole (Letrozole) 2.5 Mg Tablet, 1 TAB PO DAILY for 30 Days, #30 TAB 9 Refills Prov:ANDREW CONNOLLY MDFRCP 11/26/20 Reported Medications Ascorbic Acid (Vitamin C) 100 Mg Tablet, 1 TAB PO DAILY for 30 Days, #30 TAB 11/16/20 Vit B12/Folic Acid/B6/Aa No.15 (Glycotrol Capsule) 1 Each Capsule, 1 CAP PO DAILY for 30 Days, #30 CAP 11/16/20 Calcium Carb/Vitamin D3/Vit K1 (Calcium + D Soft Chewable Tab) 1 Each Tab.chew, 1 CHW PO 11/16/20 Multivitamin (Multivitamins) 1 Each Tablet, 1 TAB PO, TAB 11/16/20 Review of Systems Review of Systems Constitutional: Reports: Fatigue; Denies: Weight Loss HEENT: Denies: Head Aches Skin: Denies: Lesions Breast: Denies: New Breast Lumps / Masses, Nipple Retraction, Nipple Discharge, Breast Skin Changes, Breast Pain or Tenderness Cardiovascular: Denies: Edema Musculoskeletal: Denies: Arm pain Neurological: Denies: Weakness, Numbness Psych: Reports: Mood Normal Physical Examination Vital Signs Wt 142 lbs T 96.7 P 76 RR 17 BP 109/72 O2 97% Pain 0 Fatigue 7 General Exam: Alert, Cooperative, No Acute Distress Eye Exam: PERRLA, EOMI Neck Exam: Supple Breast Exam: Symmetric Bilaterally; Negative: Lumps or Masses (Minimal palpable surgical site right outer breast), Nipple Retraction, Nipple Discharge, Skin Changes Abdomen Exam: Soft Extremity Exam: Negative: Edema Neuro Exam: Normal Gait, Normal Speech, Cranial Nerves 3-12 NL Psych Exam: Mental status NL Diagnostic and Laboratory Diagnostic Review Radiologic images, relevant labs and pathology reports were personally reviewed and discussed with Ms. eMza. Assessment and Plan Impression Assessment Ms. Meza is a 60 year old female with a history of right breast cancer pT1bN0(sn)M0 ER/MS+ HER2- Grade 2 she is s/p lumpectomy and SLNB with Dr. Miranda on 11/02/20 margins were widely negative. She then completed adjuvant PBI 40 Gy in 15 fractions 12/20/20-01/11/21. She continues on AI. She is struggling with the AI, wants to continue however. No post-radiation sequelae. No evidence of recurrence on exam. Mammograms scheduled for September 2021. I will see her again in 6 months, then if all is well I will follow her q1y. Performance Status ECOG 1 Plan Follow up in 1 year Ms. Meza was encouraged to call with questions or concerns in the interim period. Billing Statement Total time of [22] minutes was spent preparing for the visit [1], obtaining HPI [5], examining the patient [4], reviewing diagnostic tests [0], discussing management options [4], coordinating care [2], and writing this note [6]. MILADYS RIDER MD Jul 06, 2021 10:13
== END ==
LOC: M ONCR 08:57
PROVIDERS: ATTEND General Practice
DX: C50.411 Malignant neoplasm of upper-outer quadrant of right female breast (principal); Z92.3 Personal history of irradiation; Z88.0 Allergy status to penicillin; Z91.018 Allergy to other foods; Z91.040 Latex allergy status

== ENCOUNTER → 2021-09-26 | Outpatient (CLI) | payer BC | LOC: M WHC 07:51 | PROVIDERS: ATTEND Surgery | DX: Z12.31 Encounter for screening mammogram for malignant neoplasm of breast (principal); Z85.3 Personal history of malignant neoplasm of breast | CPT/HCPCS: 77066; G0279 ==

== ENCOUNTER → 2022-01-04 | Outpatient (CLI) | payer BC | LOC: M ONCR 13:30 | PROVIDERS: ATTEND General Practice | DX: C50.411 Malignant neoplasm of upper-outer quadrant of right female breast (principal); Z92.3 Personal history of irradiation; Z79.811 Long term (current) use of aromatase inhibitors; Z79.899 Other long term (current) drug therapy; Z88.0 Allergy status to penicillin; Z91.018 Allergy to other foods; Z91.040 Latex allergy status ==

== ENCOUNTER → 2022-09-27 | Outpatient (CLI) | payer BC | LOC: M WHC 15:01 | PROVIDERS: ATTEND Nurse Practitioner Women's Health | DX: C50.911 Malignant neoplasm of unspecified site of right female breast (principal) | CPT/HCPCS: 77066; G0279 ==

== ENCOUNTER → 2022-09-29 | Outpatient (REF) | payer BC | LOC: M PLALAB 10:24 | PROVIDERS: ATTEND Nurse Practitioner Family | DX: Z12.4 Encounter for screening for malignant neoplasm of cervix (principal) | CPT/HCPCS: 87624; G0123 ==

== ENCOUNTER → 2022-12-08 | Outpatient (CLI) | payer BC, OTHER, SELFPAY | LOC: M WHC 10:08 | PROVIDERS: ATTEND Internal Medicine Medical Oncology | DX: C50.911 Malignant neoplasm of unspecified site of right female breast (principal); M85.851 Other specified disorders of bone density and structure, right thigh; M85.852 Other specified disorders of bone density and structure, left thigh; M85.88 Other specified disorders of bone density and structure, other site ==

== ENCOUNTER → 2023-01-04 | Outpatient (CLI) | payer OTHER | LOC: M ONCR 13:29 | PROVIDERS: ATTEND General Practice | DX: Z08 Encounter for follow-up examination after completed treatment for malignant neoplasm (principal); Z85.3 Personal history of malignant neoplasm of breast; Z71.2 Person consulting for explanation of examination or test findings; Z79.811 Long term (current) use of aromatase inhibitors; Z88.1 Allergy status to other antibiotic agents; Z88.0 Allergy status to penicillin; Z91.018 Allergy to other foods; Z91.040 Latex allergy status; Z91.048 Other nonmedicinal substance allergy status; Z92.3 Personal history of irradiation; Z98.890 Other specified postprocedural states ==

== ENCOUNTER → 2023-10-02 | Outpatient (CLI) | payer OTHER | LOC: M WHC 11:05 | PROVIDERS: ATTEND Nurse Practitioner Women's Health | DX: C50.911 Malignant neoplasm of unspecified site of right female breast (principal) ==

== ENCOUNTER → 2024-01-04 | Outpatient (CLI) | payer OTHER | LOC: M ONCR 12:46 | PROVIDERS: ATTEND General Practice | DX: Z08 Encounter for follow-up examination after completed treatment for malignant neoplasm (principal); Z85.3 Personal history of malignant neoplasm of breast; Z71.2 Person consulting for explanation of examination or test findings; Z98.890 Other specified postprocedural states; Z92.3 Personal history of irradiation; Z79.811 Long term (current) use of aromatase inhibitors; Z88.0 Allergy status to penicillin; Z88.1 Allergy status to other antibiotic agents; Z91.048 Other nonmedicinal substance allergy status; Z91.018 Allergy to other foods; Z91.040 Latex allergy status; Z79.899 Other long term (current) drug therapy ==

== ENCOUNTER → 2024-10-02 | Outpatient (CLI) | payer OTHER | LOC: M WHC 09:50 | PROVIDERS: ATTEND Internal Medicine Medical Oncology | DX: C50.911 Malignant neoplasm of unspecified site of right female breast (principal) | CPT/HCPCS: 77066; G0279 ==

== ENCOUNTER → 2024-10-29 | Outpatient (REF) | payer OTHER ==
[2024-10-31 11:22] LABS: HPV APTIMA Not Detected (Not Detected)
== END ==
LOC: M SFHCWAGY 17:48
PROVIDERS: ATTEND Nurse Practitioner Family
DX: Z12.4 Encounter for screening for malignant neoplasm of cervix (principal); N95.2 Postmenopausal atrophic vaginitis
CPT/HCPCS: 87624; G0123